=== PATIENT | female | born 1945 | race Caucasian/White ===

== ENCOUNTER 2017-09-10 09:20 | Day surgery (SDC) | payer OTHER, MEDICARE ==
[~2017-09-10] VITALS: Ht 170.2 cm; Wt 88.0 kg
[~2017-09-10 09:20] MED LIST: APRESOLINE25 MG PO; CORDARONE200 MG PO; ELIQUIS5 MG PO; LEVEMIR FL100 UNIT/1 SC; LIPITOR40 MG PO; LOPRESSOR50 MG PO; NOVOLOG PE100 UNITS/ SC
== END 2017-09-10 12:27 | disposition home or self-care (01) ==
LOC: CATH 09:20
PROVIDERS: Surgery
DX: T82.858A Stenosis of other vascular prosthetic devices, implants and grafts, initial encounter (principal); Y83.2 Surgical operation with anastomosis, bypass or graft as the cause of abnormal reaction of the patient, or of later complication, without mention of misadventure at the time of the procedure; I12.0 Hypertensive chronic kidney disease with stage 5 chronic kidney disease or end stage renal disease; E11.22 Type 2 diabetes mellitus with diabetic chronic kidney disease; N18.6 End stage renal disease; Z99.2 Dependence on renal dialysis; I83.90 Asymptomatic varicose veins of unspecified lower extremity; Z87.891 Personal history of nicotine dependence; Z79.4 Long term (current) use of insulin; Z86.73 Personal history of transient ischemic attack (TIA), and cerebral infarction without residual deficits; Z79.01 Long term (current) use of anticoagulants
CPT/HCPCS: 82948; 87641; C1725; C1769; C1894; J1644; J2250; J3010